=== PATIENT | male | born 1985 | race Caucasian/White ===

== ENCOUNTER 2019-01-09 23:50 | Outpatient (CLI) | payer MEDICAID | END 2019-01-09 23:51 | disposition critical access hospital (66) | LOC: EMS 23:50 | PROVIDERS: ATTEND Surgery | DX: I46.9 Cardiac arrest, cause unspecified (principal) | CPT/HCPCS: A0425; A0433; A0999 ==

== ENCOUNTER 2019-01-10 00:04 | Emergency (ER) | payer MEDICAID ==
[2019-01-10] MEDS ORDERED: SODIUM CHLORIDE 0.9% 1,000 ML IV ONE (00:13)
[2019-01-10 00:22] LABS: MUDS CUTOFF CONCENTRATIONS CUTOFF CONC BELOW:
--- NOTE | 2019-01-10 00:22 | ED Physician Documentation ---
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 He appears to have vomited in the bathroom sink urinated on the floor and he was found unconscious by his friends. The friends had noted a thud upstairs about 10 minutes prior to them investigating and police arrived 4 minutes later to perform CPR. Estimated downtime of 14 minutes. Paramedics arrived to find the patient in asystole and they pushed 1 mg of epinephrine through an IO line and after 2 minutes of CPR this resulted in spontaneous return of circulation. Prior to this patient had been given Narcan x2 by police officers. The patient was unresponsive at the scene and was intubated without the use of paralytic. As he arrived to the hospital he was administered succinylcholine as he appeared to have some spontaneous respirations. Review of Systems Unable to obtain: Intubated PD PAST MEDICAL HISTORY - Past Medical History Cardiovascular: None Respiratory: None Endocrine/Autoimmune: None GI: None : None HEENT: None Psych: ADD/ADHD Musculoskeletal: None Derm: None - Past Surgical History Past Surgical History: Yes HEENT: Other - Present Medications Home Medications: Ambulatory Orders Medication Instructions Recorded Confirmed Carbamide Peroxide Otic Drop 10 drops OT BID #1 bottle 01/07/15 [Debrox Otic Drops] Neomycin Goldberg/Colist/Hc/Thonzon 5 drops OT Q4H #1 bottle 01/07/15 [Cortisporin-Tc Ear Susp] - Allergies Allergies/Adverse Reactions: Allergies Allergy/AdvReac Type Severity Reaction Status Date / Time No Known Drug Allergies Allergy Verified 01/10/19 01:14 - Social History Does the pt smoke?: Yes Smoking Status: Current every day smoker Does the pt drink ETOH?: Yes Does the pt have substance abuse?: Yes - Immunizations Immunizations are current?: No - POLST Patient has POLST: No PD ED PE NORMAL - Vitals Vital signs reviewed: Yes (tachy and hypertensive marked. ) - General General: No acute distress, Well developed/nourished, Other (unconscious pupils dilated/fixed on initial exam ) - HEENT HEENT: Atraumatic - Neck Neck: Other (no obvious trauma ) - Cardiac Cardiac: No murmur, Other (tachy) - Respiratory Respiratory: Clear bilaterally - Rectal Rectal: Other (spontaneous evacuation ) - Derm Derm: Normal color, Warm and dry, No rash, Other (no tack faye) - Extremities Extremities: No deformity, No edema - Neuro Neuro: Other (unresponsive ) Eye Opening: None Motor: None Verbal: None GCS Score: 3 Results - Vitals Vitals: Vital Signs - 24 hr 01/10/19 01/10/19 01/10/19 00:04 00:17 00:22 Temperature 35.8 C L 34.1 C L Heart Rate 118 H 95 95 Respiratory 16 11 L Rate Blood Pressure 216/127 H 206/114 H 184/122 H O2 Saturation 97 99 01/10/19 01/10/19 01/10/19 00:27 00:34 00:39 Temperature 34.2 C L 34.2 C L 34.2 C L Heart Rate 99 91 88 Respiratory 13 20 22 Rate Blood Pressure 165/97 H 177/100 H 170/104 H O2 Saturation 98 97 96 01/10/19 01/10/19 01/10/19 00:49 00:54 01:00 Temperature 34.2 C L 34.2 C L 34.2 C L Heart Rate 80 79 81 Respiratory 21 24 23 Rate Blood Pressure 108/83 H 165/101 H 162/95 H O2 Saturation 97 97 92 01/10/19 01/10/19 01/10/19 01:05 01:15 01:20 Temperature 34.1 C L 34.1 C L 34.1 C L Heart Rate 71 72 77 Respiratory 29 H 26 H 26 H Rate Blood Pressure 167/100 H 156/103 H 157/90 H O2 Saturation 96 97 97 01/10/19 01/10/19 01/10/19 01:25 01:30 01:51 Temperature 34.1 C L 34.1 C L 34.4 C L Heart Rate 75 81 82 Respiratory 26 H 26 H 26 H Rate Blood Pressure 154/106 H 118/96 H 136/101 H O2 Saturation 97 97 96 Oxygen O2 Source Mechanical ventilator - EKG (time done) 0019 Rate: Rate (enter#) (95) Rhythm: NSR Ischemia: Hyperacute T waves Compare to prior EKG: Old EKG unavailable Computer interpretation: Agree with computer - Labs Labs: Laboratory Tests 01/10/19 01/10/19 01/10/19 00:12 00:12 00:12 WBC 12.3 H RBC 4.28 L Hgb 14.2 Hct 43.4 MCV 101.4 H MCH 33.2 H MCHC 32.7 RDW 14.1 Plt Count 241 MPV 9.6 Neut # (Auto) 5.9 Lymph # (Auto) 5.0 H Angelina # (Auto) 0.8 Eos # (Auto) 0.2 Baso # (Auto) 0.1 Absolute Nucleated RBC 0.00 Nucleated RBC % 0.0 Platelet Estimate NORMAL (130-450,000) RBC Morph Micro Appear NORMAL APPEARANCE Bld Gas Analysis Time Sample Site ABG pH ABG pCO2 ABG pO2 ABG HCO3 ABG Total CO2 ABG O2 Saturation ABG Base Excess Andrey Test Respiration Rate O2 Delivery Device Vent Mode FiO2 Tidal Volume Sodium 141 Potassium 3.8 Chloride 104 Carbon Dioxide 16 L Anion Gap 21.0 H BUN 12 Creatinine 1.3 H Estimated GFR (MDRD) 64 L Glucose 327 H Lactic Acid Calcium 7.9 L Total Bilirubin 0.4 AST 156 H ALT 121 H Alkaline Phosphatase 71 Troponin I < 0.04 Total Protein 7.1 Albumin 4.2 Globulin 2.9 Albumin/Globulin Ratio 1.4 Lipase 44 Urine Color Urine Clarity Urine pH Ur Specific [place] Urine Protein Urine Glucose (UA) Urine Ketones Urine Occult Blood Urine Nitrite Urine Bilirubin Urine Urobilinogen Ur Leukocyte Esterase Urine RBC Urine WBC Ur Squamous Epith Cells Urine Bacteria Ur Microscopic Review Urine Culture Comments Urine Opiates Screen Ur Oxycodone Screen Urine Methadone Screen Ur Propoxyphene Screen Ur Barbiturates Screen Ur Tricyclics Screen Ur Phencyclidine Scrn Ur Amphetamine Screen U Methamphetamines Scrn U Benzodiazepines Scrn Urine Cocaine Screen U Cannabinoids Screen Ethyl Alcohol 125.9 01/10/19 01/10/19 01/10/19 00:12 00:17 00:17 WBC RBC Hgb Hct MCV MCH MCHC RDW Plt Count MPV Neut # (Auto) Lymph # (Auto) Angelina # (Auto) Eos # (Auto) Baso # (Auto) Absolute Nucleated RBC Nucleated RBC % Platelet Estimate RBC Morph Micro Appear Bld Gas Analysis Time Sample Site ABG pH ABG pCO2 ABG pO2 ABG HCO3 ABG Total CO2 ABG O2 Saturation ABG Base Excess Andrey Test Respiration Rate O2 Delivery Device Vent Mode FiO2 Tidal Volume Sodium Potassium Chloride Carbon Dioxide Anion Gap BUN Creatinine Estimated GFR (MDRD) Glucose Lactic Acid 8.4 H* Calcium Total Bilirubin AST ALT Alkaline Phosphatase Troponin I Total Protein Albumin Globulin Albumin/Globulin Ratio Lipase Urine Color YELLOW Urine Clarity CLEAR Urine pH 7.0 Ur Specific [place] 1.015 Urine Protein 30 H Urine Glucose (UA) NEGATIVE Urine Ketones NEGATIVE Urine Occult Blood TRACE-INTA Urine Nitrite NEGATIVE Urine Bilirubin NEGATIVE Urine Urobilinogen 0.2 (NORMAL) Ur Leukocyte Esterase NEGATIVE Urine RBC 6-10 H Urine WBC 0-3 Ur Squamous Epith Cells RARE Squamous Urine Bacteria Rare Ur Microscopic Review INDICATED Urine Culture Comments NOT INDICATED Urine Opiates Screen NEGATIVE Ur Oxycodone Screen NEGATIVE Urine Methadone Screen NEGATIVE Ur Propoxyphene Screen NEGATIVE Ur Barbiturates Screen NEGATIVE Ur Tricyclics Screen NEGATIVE Ur Phencyclidine Scrn NEGATIVE Ur Amphetamine Screen NEGATIVE U Methamphetamines Scrn NEGATIVE U Benzodiazepines Scrn NEGATIVE Urine Cocaine Screen NEGATIVE U Cannabinoids Screen NEGATIVE Ethyl Alcohol 01/10/19 00:18 WBC RBC Hgb Hct MCV MCH MCHC RDW Plt Count MPV Neut # (Auto) Lymph # (Auto) Angelina # (Auto) Eos # (Auto) Baso # (Auto) Absolute Nucleated RBC Nucleated RBC % Platelet Estimate RBC Morph Micro Appear Bld Gas Analysis Time 0027 Sample Site LEFT RADIAL ABG pH 7.19 L* ABG pCO2 41 ABG pO2 227 H* ABG HCO3 15.3 L ABG Total CO2 16.6 L ABG O2 Saturation 99 H ABG Base Excess -12.3 L Andrey Test POSITIVE Respiration Rate 14 O2 Delivery Device VENTILATOR Vent Mode ACCESSED/CONTROL FiO2 100.00 Tidal Volume 500 Sodium Potassium Chloride Carbon Dioxide Anion Gap BUN Creatinine Estimated GFR (MDRD) Glucose Lactic Acid Calcium Total Bilirubin AST ALT Alkaline Phosphatase Troponin I Total Protein Albumin Globulin Albumin/Globulin Ratio Lipase Urine Color Urine Clarity Urine pH Ur Specific [place] Urine Protein Urine Glucose (UA) Urine Ketones Urine Occult Blood Urine Nitrite Urine Bilirubin Urine Urobilinogen Ur Leukocyte Esterase Urine RBC Urine WBC Ur Squamous Epith Cells Urine Bacteria Ur Microscopic Review Urine Culture Comments Urine Opiates Screen Ur Oxycodone Screen Urine Methadone Screen Ur Propoxyphene Screen Ur Barbiturates Screen Ur Tricyclics Screen Ur Phencyclidine Scrn Ur Amphetamine Screen U Methamphetamines Scrn U Benzodiazepines Scrn Urine Cocaine Screen U Cannabinoids Screen Ethyl Alcohol - Rads (name of study) CXR Radiology: Prelim report reviewed (Impression: 1. No definite acute cardiopulmonary normality. 2. No significant displaced rib fractures are seen. 3. Oral orogastric tube tip projects at the gastroesophageal junction. Recommend advancement of 8 to 10 cm.), EMP read indepedently, See rad report CT chest angio Radiology: Prelim report reviewed (Impression: 1. High endotracheal tube position, above the thoracic inlet. 2 No pulmonary embolism seen. 3 bibasilar atelectasis. 4 Left sixth and seventh rib fractures acute or subacute. 5 Possible gallbladder wall thickening or poorly pericholecystic fluid. Gallstones may be present.), EMP read indepedently, See rad report thoracic spine Radiology: Prelim report reviewed (Impression: 1. High endotracheal tube position, above the thoracic inlet. 2. No acute thoracic spine abnormality.), EMP read indepedently, See rad report lumbart spine Radiology: Prelim report reviewed (Impression: no acute lumbar spine abnormality.), EMP read indepedently, See rad report cervical spine Radiology: Prelim report reviewed (Impression: 1. No evidence of acute traumatic injury in the cervical spine. The lower cervical spine is poorly evaluated due to significant motion artifact, but appears intact on the separate CT images of the thoracic spine. 2 C4-C5 spondylolysis with moderate right foraminal stenosis due to uncovertebral hypertrophy), EMP read indepedently, See rad report CT head without Radiology: Prelim report reviewed (Impression: 1. Mild sulcal effacement may be age-appropriate, although mild cerebral edema is not definitely excluded. Shor t-term follow-up and/or MRI may be useful if clinically warranted. 2. 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 He did have a fall does not appear to be injured related to the fall. He has significant depression of motor functions. He does not appear to be responding to painful stimuli. Here in the emergency department he is continued on intravenous fluids he is mechanically ventilated with stable vital signs and cooling is initiated. He does have an OG tube in place he has 2 peripheral IV lines he has a Tenorio catheter in place with temperature monitor and he is on a cooling blanket. Core temperature is [address] Nhi Rodriguez at the [facility] is consulted in the case and recommends imaging the head spine and chest. These are obtained and she is excepting the patient in transfer. My concern for this patient is that he appears to have significant brain damage. It does appear that it was easy to restart his heart and he appears stable for transport. Ultimately he may end up being an organ donor. We were unable to contact family and police were unable to locate next of kin from the patients call log on his cell phone. Departure - Departure Disposition: 02 Transfer Acute Care Hosp Clinical Impression: Cardiac arrest Condition: Critical Discharge Date/Time: 01/10/19 02:05
[2019-01-10 00:27] LABS: BILIRUBIN,URINE NEGATIVE (NEGATIVE); CLARITY,URINE CLEAR (CLEAR); GLUCOSE, URINE (UA) NEGATIVE (NEGATIVE); KETONES,URINE (UA) NEGATIVE (NEGATIVE); LEUKOCYTE ESTERASE, URINE NEGATIVE (NEGATIVE); NITRITE,URINE NEGATIVE (NEGATIVE); OCCULT BLOOD,URINE TRACE-INTA (NEGATIVE); PROTEIN,URINE 30 mg/dL (NEGATIVE); UROBILINOGEN,URINE 0.2 (NORMAL) E.U./dL (NORMAL)
[2019-01-10 00:29] LABS: BACTERIA,URINE Rare /HPF (None Seen); SQUAMOUS EPITHELIAL CELL,UR RARE Squamous (<= Few)
[2019-01-10 00:30] LABS: ABG PH 7.19 (7.35-7.45)
[2019-01-10] MEDS ORDERED: SODIUM BICARBONATE ABBOJECT 50 MEQ/50 ML SYRINGE IVP STA (00:30)
[2019-01-10 00:31] LABS: ABG BASE EXCESS -12.3 mmol/L (-2.0-3.0); ABG HCO3 15.3 mmol/L (22.0-26.0); ABG OXYGEN SATURATION 99 % (94-98); ABG PCO2 41 mmHg (34-45); ABG PO2 227 mmHg (80-100); ABG TCO2 16.6 MMOL/L (21.0-29.0)
[2019-01-10 00:32] LABS: ALLEN TEST POSITIVE
[2019-01-10 00:32] LABS: ALBUMIN 4.2 g/dL (3.2-5.5); ALBUMIN/GLOBULIN RATIO 1.4 (1.0-2.2); BILIRUBIN,TOTAL 0.4 mg/dL (0.2-1.0); CALCIUM 7.9 mg/dL (8.5-10.3); CREATININE 1.3 mg/dL (0.6-1.2); TOTAL PROTEIN 7.1 g/dL (6.7-8.2)
[2019-01-10 00:34] LABS: AMPHETAMINE SCREEN,URINE NEGATIVE (NEGATIVE); BENZODIAZEPINES SCREEN, URINE NEGATIVE (NEGATIVE); COCAINE SCREEN URINE NEGATIVE (NEGATIVE); METHADONE SCREEN, URINE NEGATIVE (NEGATIVE); METHAMPHETAMINES SCREEN, URINE NEGATIVE (NEGATIVE); OPIATE SCREEN, URINE NEGATIVE (NEGATIVE); OXYCODONE SCREEN, URINE NEGATIVE (NEGATIVE); PROPOXYPHENE SCREEN, URINE NEGATIVE (NEGATIVE); TRICYCLIC ANTIDEPRESSANT,URINE NEGATIVE (NEGATIVE)
[2019-01-10 00:50] LABS: PLATELET ESTIMATE, MANUAL NORMAL (130-450,000) (NORMAL); RBC MORPHOLOGY (MULTIPLE) NORMAL APPEARANCE (NORMAL)
[2019-01-10 00:51] LABS: BASOPHILS # (AUTO) 0.1 10^3/uL (0.0-0.1); BASOPHILS % (AUTO) 0.6 %; EOSINOPHILS # (AUTO) 0.2 10^3/uL (0.0-0.7); EOSINOPHILS % (AUTO) 1.7 %; HGB - HEMOGLOBIN 14.2 g/dL (14.0-18.0); LYMPHOCYTES % (AUTO) 40.9 %; MEAN CORPUSCULAR HEMOGLOBIN 33.2 pg (27.0-31.0); MEAN CORPUSCULAR HGB CONC 32.7 g/dL (32.0-36.0); MEAN CORPUSCULAR VOLUME 101.4 fL (80.0-94.0); MEAN PLATELET VOLUME 9.6 fL (7.4-11.4); MONOCYTES # (AUTO) 0.8 10^3/uL (0.0-1.0); MONOCYTES % (AUTO) 6.8 %; NEUTROPHILS # (AUTO) 5.9 10^3/uL (1.5-6.6); NEUTROPHILS % (AUTO) 47.7 %; PLT - PLATELET COUNT 241 10^3/uL (130-450); RED BLOOD COUNT 4.28 10^6/uL (4.70-6.10); RED CELL DISTRIBUTION WIDTH 14.1 % (12.0-15.0); WHITE BLOOD COUNT 12.3 x10^3/uL (4.8-10.8)
--- NOTE | 2019-01-10 01:26 | XRAY Report ---
Reason: CPR Procedure Date: 01/10/2019 Accession Number: [id number] / [id number] Procedure: XR - Chest 1 View X-Ray CPT Code: 52041 FULL RESULT: EXAM: CHEST RADIOGRAPHY EXAM DATE: 01/10/2019 12:28 AM. CLINICAL HISTORY: Status post cardiopulmonary resuscitation, intubation, follow-up examination. COMPARISON: None. TECHNIQUE: 1 view. FINDINGS: Lungs/Pleura: No significant lung consolidation. There is no definite effusion. No indirect evidence of a pneumothorax on this supine exposure. Mediastinum: Normal heart size when accounting for lung volumes and technique. Other: Endotracheal tube tip projects 9.2 cm above the marcelina. Orogastric tube tip projects at the gastroesophageal junction. Recommend advancement of 8-10 cm. IMPRESSION: 1. No definite acute cardiopulmonary abnormality. 2. No significant displaced rib fractures are seen. 3. Orogastric tube tip projects at the gastroesophageal junction. Recommend advancement of 8-10 cm. RADIA
[2019-01-10] MEDS ORDERED: IOVERSOL 320 100 ML VIAL IVP ONE ×2 (01:30→01:56)
[2019-01-10 01:51] VITALS: BP 136/101
--- NOTE | 2019-01-10 02:13 | CT Report ---
Reason: arrest, fall Procedure Date: 01/10/2019 Accession Number: [id number] / [id number] Procedure: CT - ANGIO CHEST W/WO CPT Code: FULL RESULT: EXAM: CT ANGIOGRAM CHEST EXAM DATE: 01/10/2019 01:51 AM. CLINICAL HISTORY: Arrest, fall. COMPARISON: None. TECHNIQUE: Routine helical imaging was performed through the chest in the pulmonary arterial phase. IV Contrast: OPTI 320 80ML. Reconstructions: Coronal 3-D MIP reconstructions.Sagittal and coronal. In accordance with CT protocol optimization, one or more of the following dose reduction techniques were utilized for this exam: automated exposure control, adjustment of mA and/or KV based on patient size, or use of iterative reconstructive technique. FINDINGS: Pulmonary Arteries: Diagnostic quality: Adequate through the segmental arteries. No evidence for acute or chronic pulmonary emboli. No evidence of right heart strain. Lungs/Pleura: Bibasilar atelectasis. No maggie alveolar consolidation seen. No pleural effusion. No pneumothorax. Mediastinum: Heart size is normal. No lymphadenopathy. Thoracic Aorta: No aneurysm or dissection. Upper Abdomen: Possible gallbladder wall thickening or pericholecystic fluid. There may be stones in the gallbladder. Other: Endotracheal tube position is high, above the thoracic inlet. Enteric tube extends to the gastroesophageal junction. Left sixth and seventh rib fractures which could be acute or subacute. IMPRESSION: 1. High endotracheal tube position, above the thoracic inlet. 2. No pulmonary emboli seen. 3. Bibasilar atelectasis. 4. Left sixth and seventh rib fractures, acute or subacute. 5. Possible gallbladder wall thickening or pericholecystic fluid. Gallstones may be present. RADIA
--- NOTE | 2019-01-10 02:16 | CT Report ---
Reason: LOC fall, not moving Procedure Date: 01/10/2019 Accession Number: [id number] / [id number] Procedure: CT - LUMBAR SPINE WO CPT Code: FULL RESULT: EXAM: CT LUMBAR SPINE WITHOUT CONTRAST EXAM DATE: 01/10/2019 01:47 AM. CLINICAL HISTORY: Loss of consciousness, fall, not moving. COMPARISONS: None. TECHNIQUE: Thin-section axial images were acquired of the lumbar spine from T12 to S1 without contrast. Post-processing: Coronal and sagittal reformats. Other: None. In accordance with CT protocol optimization, one or more of the following dose reduction techniques were utilized for this exam: automated exposure control, adjustment of mA and/or KV based on patient size, or use of iterative reconstructive technique. FINDINGS: Alignment: Unremarkable. Bones: Five [id number] lumbar vertebral bodies are present. No fractures or bone lesions. Disk Levels/Facets: T12-L1: Unremarkable. L1-L2: Unremarkable. L2-L3: Unremarkable. L3-L4: Unremarkable. L4-L5: Unremarkable. L5-S1: Unremarkable. Musculature: Normal. No fatty atrophy. Other: The visualized retroperitoneum is unremarkable. IMPRESSION: 1. No acute lumbar spine abnormality. RADIA
--- NOTE | 2019-01-10 02:20 | CT Report ---
Reason: LOC fall not moving Procedure Date: 01/10/2019 Accession Number: [id number] / [id number] Procedure: CT - THORACIC SPINE WO CPT Code: FULL RESULT: EXAM: CT THORACIC SPINE WITHOUT CONTRAST EXAM DATE: 01/10/2019 01:48 AM. CLINICAL HISTORY: Loss of consciousness, fall not moving. COMPARISONS: None. TECHNIQUE: Thin-section axial images were acquired of the thoracic spine from C7 to L1 without contrast. Post-processing: Coronal and sagittal reformats. Other: None. In accordance with CT protocol optimization, one or more of the following dose reduction techniques were utilized for this exam: automated exposure control, adjustment of mA and/or KV based on patient size, or use of iterative reconstructive technique. FINDINGS: Alignment: Mild dextroconvex thoracic curvature, positional versus scoliosis. No spondylolisthesis. Bones: No acute fracture seen. Disk Levels/Facets: C7-T1: Unremarkable. T1-T2: Unremarkable. T2-T3: Unremarkable. T3-T4: Unremarkable. T4-T5: Unremarkable. T5-T6: Unremarkable. T6-T7: Unremarkable. T7-T8: Unremarkable. T8-T9: Unremarkable. T9-T10: Unremarkable. T10-T11: Unremarkable. T11-T12: Unremarkable. T12-L1: Unremarkable. Musculature: Normal. No fatty atrophy. Other: See separate chest CT report. Endotracheal tube position is high, above the thoracic inlet. IMPRESSION: 1. High endotracheal tube position, above the thoracic inlet. 2. No acute thoracic spine abnormality. RADIA
--- NOTE | 2019-01-10 02:42 | CT Report ---
Reason: CPR Procedure Date: 01/10/2019 Accession Number: [id number] / [id number] Procedure: CT - HEAD WO CPT Code: FULL RESULT: EXAM: CT HEAD EXAM DATE: 01/10/2019 01:40 AM. CLINICAL HISTORY: CPR. COMPARISON: None. TECHNIQUE: Multiaxial CT images were obtained from the foramen magnum to the vertex. Reformats: Sagittal and coronal. IV contrast: None. In accordance with CT protocol optimization, one or more of the following dose reduction techniques were utilized for this exam: automated exposure control, adjustment of mA and/or KV based on patient size, or use of iterative reconstructive technique. FINDINGS: Parenchyma: No intraparenchymal hemorrhage. No evidence of mass, midline shift, or CT findings of infarction. Jhaveri-white differentiation is distinct. Extraaxial Spaces: Sulci are poorly visualized, which may be normal in a patient of this age with normal brain volume. Without prior CT available for comparison, mild cerebral edema is not definitely excluded, especially in the setting of recent cardiac arrest. There is no abnormal hypodensity in the basal ganglia. No subdural or epidural collection is identified. Ventricles: Normal in size and position. Sinuses and Orbits: Mild mucosal thickening is noted in the maxillary and sphenoid sinuses. The left ocular lens is irregular in appearance. Correlate with prior surgical history. Bones: No evidence of fracture or calvarial defect. Other: Secretions are noted in the nasopharynx. This is likely related to intubation. IMPRESSION: 1. Mild sulcal effacement may be age-appropriate, although mild cerebral edema is not definitely excluded. Short term follow up and/or MRI may be useful if clinically warranted. 2. No evidence of acute infarct or intracranial hemorrhage. RADIA
--- NOTE | 2019-01-10 02:48 | CT Report ---
Reason: LOC not moving Procedure Date: 01/10/2019 Accession Number: [id number] / [id number] Procedure: CT - CERVICAL SPINE WO CPT Code: FULL RESULT: EXAM: CT CERVICAL SPINE WITHOUT CONTRAST DATE: 01/10/2019 01:45 AM. HISTORY: LOC not moving. COMPARISONS: CT thoracic spine performed same date. TECHNIQUE: Thin-section axial images were acquired of the cervical spine without contrast. Post-processing: Coronal and sagittal reformats. Other: None. In accordance with CT protocol optimization, one or more of the following dose reduction techniques were utilized for this exam: automated exposure control, adjustment of mA and/or KV based on patient size, or use of iterative reconstructive technique. FINDINGS: Examination is limited due to motion artifact in the mid and lower cervical spine. Alignment: Alignment is normal through C5-C6. Alignment below this level cannot be assessed based on these images due to significant motion artifact. Please note, the C5, C6 and C7 levels are well visualized on the thoracic spine CT and appear intact. Bones: No fracture or bone lesion. Interspace Levels/Facets: There is moderate disk height loss and endplate osteophytosis at the C4-C5 level. Uncovertebral hypertrophy produces moderate right foraminal stenosis at this level. Other: The paravertebral and prevertebral soft tissues are unremarkable. The lung apices are clear. Endotracheal and orogastric tubes are partially visualized. IMPRESSION: 1. No evidence of acute traumatic injury in the cervical spine. The lower cervical spine is poorly evaluated due to significant motion artifact, but appears intact on the separate CT images of the thoracic spine. 2. C4-C5 spondylosis with moderate right foraminal stenosis due to uncovertebral hypertrophy. RADIA
== END 2019-01-10 02:05 | disposition short-term general hospital (02) ==
LOC: EDUNIT# → ED 00:04
DX: I46.9 Cardiac arrest, cause unspecified (principal); F17.200 Nicotine dependence, unspecified, uncomplicated
CPT/HCPCS: 36415; 51702; 70450; 71045; 71275; 72125; 72128; 72131; 80053; 80306; 80320; 81001; 82803; 83605; 83690; 84484; 85025; 93005; 94770; 96374; 99285; Q9967; 36600; 81003; 87086